=== PATIENT | female | born 1970 | race Two or more races ===

== ENCOUNTER → 2025-04-21 | Outpatient (CLI) | payer MEDICAID, SELFPAY ==
--- NOTE | 2025-04-21 15:00 | XR_ITS ---
Examination: Abdomen sonogram, Limited Date and time of exam: April 21, 2025 1545 hours INDICATIONS: Diagnosis chronic hepatitis C without hepatic coma Technique: Real-time ferreira scale transabdominal sonographic images of the upper abdomen obtained. Findings: Normal gallbladder Normal common bile duct 0.3 cm Pancreatic head 2.4 cm Liver 15.9 cm irregular contour no focal liver lesions Normal hepatopedal portal venous flow Patent IVC IMPRESSION: Negative study
== END | disposition home or self-care (01) ==
LOC: CDIM 14:36
PROVIDERS: PCP Family Medicine; Referring Provider Family Medicine; Visit Provider Family Medicine
DX: B19.20 Unspecified viral hepatitis C without hepatic coma (principal)
CPT/HCPCS: 76705